=== PATIENT | male | born 1970 | race Caucasian/White ===

== ENCOUNTER 2020-02-04 07:35 | Emergency (ER) | payer OTHER ==
--- NOTE | 2020-02-04 08:14 | EDM.PDOC ---
ED HPI GENERAL MEDICAL PROBLEM - General Chief Complaint: Respiratory Problem Stated Complaint: FEVER,SORE THROAT, CHEST CONGESTION Time Seen by Provider: 02/04/20 08:13 - History of Present Illness INITIAL COMMENTS - FREE TEXT/NARRATIVE: 49-year-old male presents the emergency room with a 2-day history of cough congestion sore throat and achy all over. This started roughly 2 days ago with cough congestion and sore throat as times progressed he is achy all over he felt quite warm yesterday evening however did not have a thermometer yesterday it was difficult for him to work. He has some nasal congestion. He is not having any shortness of breath. Past medical history is significant for high blood pressure. Takes lisinopril for this he is not on any other medications. He has been using DayQuil and NyQuil without any significant success. Generalized Pain Score (Numeric/FACES): 3 - Related Data Allergies Allergy/AdvReac Type Severity Reaction Status Date / Time No Known Allergies Allergy Verified 02/04/20 07:48 Home Meds: Home Meds Lisinopril [Zestril] 20 mg PO DAILY 02/04/20 [History] Oseltamivir [Tamiflu] 75 mg PO BID #9 cap 02/04/20 [Rx] Past Medical History Cardiovascular History: Reports: Hypertension Social & Family History - Tobacco Use Smoking Status *Q: Never Smoker ED ROS GENERAL - Review of Systems Review Of Systems: See Below Constitutional: Reports: Chills. Denies: Night Sweats HEENT: Reports: Rhinitis, Throat Pain. Denies: Ear Pain Respiratory: Reports: Cough, Sputum (Minimal amount) Cardiovascular: Reports: No Symptoms Endocrine: Reports: No Symptoms GI/Abdominal: Reports: No Symptoms : Reports: No Symptoms Musculoskeletal: Reports: No Symptoms Skin: Reports: No Symptoms Neurological: Reports: No Symptoms ED EXAM, GENERAL - Physical Exam Exam: See Below Exam Limited By: No Limitations General Appearance: Alert, No Apparent Distress Ears: Normal External Exam, Normal Canal, Hearing Grossly Normal, Normal TMs Nose: Normal Inspection, No Blood. No: Nasal Tenderness, Nasal Drainage, Clear Rhinorrhea Throat/Mouth: Normal Inspection, Normal Lips, Normal Gums, Normal Oropharynx, Normal Voice, No Airway Compromise Head: Atraumatic, Normocephalic Neck: Normal Inspection, Supple, Non-Tender, Full Range of Motion. No: Lymphadenopathy (L), Lymphadenopathy (R) Respiratory/Chest: No Respiratory Distress, Lungs Clear, Normal Breath Sounds Cardiovascular: Regular Rate, Rhythm, No Edema, No Murmur GI/Abdominal: Normal Bowel Sounds, Soft, Non-Tender Back Exam: Normal Inspection. No: CVA Tenderness (L), CVA Tenderness (R) Extremities: Normal Inspection, Normal Range of Motion, Non-Tender Neurological: Alert, Oriented, Normal Cognition Skin Exam: Warm, Dry, Intact, Normal Color, No Rash Lymphatic: No Adenopathy Course - Vital Signs Last Recorded V/S: Last Vital Signs Temp 36.7 C 02/04/20 07:45 Pulse 104 H 02/04/20 07:45 Resp 16 02/04/20 07:45 BP 132/98 H 02/04/20 07:45 Pulse Ox 96 02/04/20 07:45 - Orders/Labs/Meds Orders: Active Orders 24 hr Category Date Time Status Isolation [COMM] Routine Oth 02/04/20 08:54 Ordered - Re-Assessments/Exams Free Text/Narrative Re-Assessment/Exam: 02/04/20 09:40 Influenza screen is positive I think it is unlikely this gentleman has coded and he does not meet the criteria according to the [facility] bulletin dated January 31, 2020. With the influenza a the patient will be started on Tamiflu we did discuss the pros and cons of doing this. And he agrees to be started on Tamiflu Departure - Departure Time of Disposition: 09:43 Disposition: Home, Self-Care 01 Clinical Impression: Influenza A - Discharge Information Prescriptions: Oseltamivir [Tamiflu] 75 mg PO BID #9 cap Instructions: Influenza, Adult, [id number] Referrals: PCP,Not In Area [Primary Care Provider] - Forms: ED Department Discharge, ED Return to Work/School Form Additional Instructions: Return to the emergency room with any questions problems or worsening symptoms. Stay off work until Wednesday. Possibly longer if still symptomatic. Take the Tamiflu as directed. Push lots of fluids. Use Tylenol for aches pains and fever control. Sepsis Event Note - Evaluation Sepsis Screening Result: No Definite Risk - Focused Exam Vital Signs: Vital Signs Temp Pulse Resp BP Pulse Ox 02/04/20 07:45 36.7 C 104 H 16 132/98 H 96 Date Exam was Performed: 02/04/20 Time Exam was Performed: 09:34 - My Orders Last 24 Hours: My Active Orders 02/04/20 08:54 Isolation [COMM] Routine - Assessment/Plan Last 24 Hours: My Active Orders 02/04/20 08:54 Isolation [COMM] Routine
[2020-02-04] MEDS ORDERED: Oseltamivir 75 MG Cap PO ONE (09:35)
== END 2020-02-04 10:00 | disposition home or self-care (01) ==
LOC: JD.ED 07:35
DX: J10.1 Influenza due to other identified influenza virus with other respiratory manifestations (principal); I10 Essential (primary) hypertension; Z79.899 Other long term (current) drug therapy
CPT/HCPCS: 87804; 99283; A9270